=== PATIENT | female | born 1975 | race Caucasian/White ===

== ENCOUNTER 2018-09-05 10:39 | Emergency (ER) | payer OTHER ==
[2018-09-05 11:00] VITALS: PULSE 82; RESP 18
[2018-09-05 11:42] LABS: SQUAMOUS EPITHIAL < 1 /hpf (0-5); URINE BACTERIA RARE (<OCC); URINE BILIRUBIN NEGATIVE (NEGATIVE); URINE BLOOD NEGATIVE (NEGATIVE); URINE CLARITY Clear (Clear); URINE COLOR Straw (YELLOW); URINE GLUCOSE (UA) NORMAL (Normal); URINE LEUKOCYTE ESTERASE NEG Leu/uL (Negative); URINE PROTEIN NEGATIVE (NEGATIVE); URINE UROBILINOGEN NORMAL mg/dL (0.2-1.0)
--- NOTE | 2018-09-05 11:48 | C.PDOC ---
History Of Present Illness 43-year-old female presents to the ED for evaluation of abdominal pain that began this morning. States she woke around 8:00am with bloating and crampy pain to her lower abdomen. Reports urinary frequency. The symptoms lasted 2 hours and resolved spontaneously, without any medication. Patient was en route to work when she decided to get checked out. She denies any associated dysuria, hematuria, vaginal bleeding, nausea, vomiting, diarrhea, fever, or chills. Last bowel movement was yesterday. Time Seen by Provider: 09/05/18 11:19 Chief Complaint (Nursing): Abdominal Pain History Per: Patient History/Exam Limitations: no limitations Onset/Duration Of Symptoms: Hrs (x2) Current Symptoms Are (Timing): Gone Quality Of Discomfort: Cramping Past Medical History Reviewed: Historical Data, Nursing Documentation, Vital Signs Vital Signs: Last Vital Signs Temp 98.7 F 09/05/18 10:48 Pulse 82 09/05/18 10:48 Resp 18 09/05/18 10:48 BP 123/84 09/05/18 10:48 Pulse Ox 97 09/05/18 10:48 - Medical History PMH: No Chronic Diseases Other Surgeries: Hysterectomy Family History: States: No Known Family Hx - Social History Hx Alcohol Use: Yes Hx Substance Use: No - Immunization History Hx Tetanus Toxoid Vaccination: No Hx Influenza Vaccination: No Hx Pneumococcal Vaccination: No Review Of Systems Constitutional: Negative for: Fever, Chills Cardiovascular: Negative for: Palpitations Respiratory: Negative for: Shortness of Breath Gastrointestinal: Positive for: Abdominal Pain (now resolved). Negative for: Nausea, Vomiting, Diarrhea, Constipation Genitourinary: Positive for: Frequency. Negative for: Dysuria, Hematuria, Vaginal Bleeding Skin: Negative for: Rash Neurological: Negative for: Weakness Physical Exam - Physical Exam Appears: Well, Non-toxic, No Acute Distress Skin: Warm, Dry Head: Atraumatic, Normacephalic Eye(s): bilateral: Normal Inspection, EOMI Oral Mucosa: Moist Neck: Normal ROM Chest: Symmetrical Cardiovascular: Rhythm Regular, No Murmur Respiratory: Normal Breath Sounds, No Rales, No Rhonchi, No Wheezing Gastrointestinal/Abdominal: Soft, No Tenderness, No Guarding, No Rebound Back: No CVA Tenderness, No Vertebral Tenderness Extremity: Bilateral: Atraumatic, Normal Color And Temperature, Normal ROM Neurological/Psych: Oriented x3, Normal Speech Gait: Steady ED Course And Treatment O2 Sat by Pulse Oximetry: 97 (RA) Pulse Ox Interpretation: Normal Medical Decision Making Medical Decision Making: Impression: Abdominal Pain, now resolved Plan: * UA and urine preg ordered Progress: Labs reviewed, UA is clear. Patient remained well and in no distress. Abdomen was soft. Patient stable for discharge. Patient was to follow up outpatient. She asked for work note. Disposition Counseled Patient/Family Regarding: Diagnosis, Need For Followup, Rx Given - Disposition Referrals: Kevon Cramer MD [Staff Provider] - Disposition: HOME/ ROUTINE Disposition Time: 12:07 Condition: STABLE Additional Instructions: Urine results normal Follow up with your doctor Instructions: Acute Abdomen (Belly Pain), Adult (DC) Forms: Work Excuse - POA Present On Arrival: None - Clinical Impression Clinical Impression: Abdominal bloating - PA / COOK HELPER / Resident Statement MD/DO has reviewed & agrees with the documentation as recorded. - Scribe Statement The provider has reviewed the documentation as recorded by the Scribgerman Edwarsd All medical record entries made by the Scribe were at my direction and personally dictated by me. I have reviewed the chart and agree that the record accurately reflects my personal performance of the history, physical exam, medical decision making, and the department course for this patient. I have also personally directed, reviewed, and agree with the discharge instructions and dis position.
[2018-09-05 11:58] LABS: HCG,QUALITATIVE URINE NEGATIVE (NEGATIVE)
[2018-09-05 12:16] VITALS: BP 126/82; TEMP 98.5
[2018-09-05 13:49] VITALS: O2SAT 97
== END 2018-09-05 12:17 | disposition home or self-care (01) ==
LOC: C.ER 10:39
DX: R14.0 Abdominal distension (gaseous) (principal)